=== PATIENT | female | born 1930 | race Caucasian/White ===

== ENCOUNTER 2016-12-21 09:12 | Day surgery (SDC) | payer MEDICARE, BC ==
[2016-12-21] MEDS ORDERED: Lidocaine 1% INJ* 10 MG/ML 30 ML SDV ONE (10:55)
[2016-12-21] MEDS ORDERED: Bupivacaine 0.5% SDV PF* 30 ML VIAL ONE (10:55)
[2016-12-21 11:52] VITALS: BP 171/90
--- NOTE | 2016-12-22 04:18 | OP ---
DATE OF OPERATION: 12/21/16 - [facility] DATE OF : 34 SURGEON: Jonas Piedra DPM TRY ON BASTER: None. ANESTHESIA: Local anesthesia. PRE-OP DIAGNOSES: 1. Painful bone spur at the lateral aspect of the right great toe. 2. Painful bone spur at the medial aspect of the second right toe. POST-OP DIAGNOSIS: 1. Painful bone spur at the lateral aspect of the right great toe. 2. Painful bone spur at the medial aspect of the second right toe. OPERATIVE PROCEDURE: 1. Excision of bone spur from the lateral aspect of the interphalangeal joint of the right great toe. 2. Excision of bone spur from the medial aspect of the DIPJ of the second right toe. HEMOSTASIS: Pneumatic ankle tourniquet. ESTIMATED BLOOD LOSS: Less than 3 cc. PATHOLOGY: Resected bone spurs. 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 She developed bony hypertrophy at the lateral aspect of the interphalangeal joint at the right great toe and distal interphalangeal joint of the second right toe causing painful skin lesions. It became difficult to wear any shoe or walk without pain. She has to constantly cover and protect the area with bandage or cushions or pads. She opts for surgery at this time because she is not able to wear shoes or walk without pain. DESCRIPTION OF PROCEDURE: The patient was brought to the operating room, placed on the operating room table in supine position. The right foot was prepped and draped in usual fashion. Next a nerve block was performed at the base of right great toe and base of second toe with 1:1 mixture of 1% lidocaine plain and 0.5% Marcaine plain. Next, after assuring adequate anesthesia, the right foot was exsanguinated with Esmarch bandage and pneumatic ankle tourniquet was inflated to 250 mmHg about a well-padded right ankle. Attention was directed to the dorsolateral aspect of the right great toe, where a linear incision was made to allow exposure at the lateral aspect of the interphalangeal joint. Incision was deepened through subcutaneous tissues with care being taken to retract neurovascular structures. Dissection was carried down to deep fascia, where linear periosteal incision was made for exposure of the hypertrophic bone primarily at the lateral base of the distal phalanx of the right great toe. Using a sagittal saw, the hypertrophic bone was resected and a small bur was used to further reduce the prominence of this area and create small concavity as well at the distal lateral proximal phalangeal head and base of the distal phalanx. The surgical site was flushed with copious amounts of normal sterile saline. 4-0 Polysorb was used to reapproximate deep fascia as well as reapproximate subcutaneous tissues and skin was reapproximated with 5-0 nylon. It should be noted, prior to closure, the area was palpated to ensure there are adequate debulking and resection of the bone spur from this area. Next attention was directed to the dorsal medial aspect of the second right toe where linear incision was made. The incision was deep into subcutaneous tissues. Care was taken to retract neurovascular structures. Next a linear periosteal and capsular incision was made to allow exposure of the medial aspect of the distal interphalangeal joint. There was noted to be bony hypertrophy and surgical saw was used to resect the bone spurs and power bur was used to further reduce the prominence of this area as well as create small concavity. Surgical site was flushed with copious amounts of normal sterile saline. The area was palpated through the skin to ensure adequate debulking of the area as well. Again surgical site was flushed with copious amounts of normal sterile saline. The deep fascia and capsular tissues were reapproximated with 4-0 Polysorb and subcutaneous tissues were reapproximated with 4-0 Polysorb and skin was reapproximated with 5-0 nylon. The incisions were dressed with Xeroform gauze and a light compressive dressing was applied consisting of 4x4 gauze, Katie, and light Coban wrap. Pneumatic ankle tourniquet was deflated about the right ankle and a prompt hyperemic response was noted in all 5 digits in the patient's right foot. Having appeared to tolerate the procedure and anesthesia well, the patient was transported via cart from the operating room to Recovery in satisfactory condition with cap refill less than 5 seconds to all digits of the right foot. [id number]/[facility] #: [id number] [facility]ERS[facility] HOSPITALLouise
== END 2016-12-21 12:21 | disposition home or self-care (01) ==
LOC: OREAST 09:12
PROVIDERS: ATTEND Podiatrist Foot Surgery
DX: M77.8 Other enthesopathies, not elsewhere classified (principal); Z87.891 Personal history of nicotine dependence
CPT/HCPCS: 88304; 88311; J2001

== ENCOUNTER 2018-02-26 05:07 | Emergency (ER) | payer MEDICARE, OTHER ==
--- NOTE | 2018-02-26 05:38 | ED ---
Headache - HPI Summary HPI Summary: This is scribe Bashir Feldman documenting for attending Paulette Ray MD. Pt c/o intermittent head pain to top of head since yesterday morning. States pain comes and goes quickly. Pt denies pain at this time. 11/22 I, Dr. Ray, personally performed the services described in this documentation as scribed in my presence and it is both accurate and complete. - History Of Current Complaint Chief Complaint: EDHeadache Stated Complaint: HEAD PAIN Hx Obtained From: Patient - Allergies/Home Medications Allergies/Adverse Reactions: Allergies Allergy/AdvReac Type Severity Reaction Status Date / Time cephalexin Allergy Intermediate Rash Verified 02/26/18 05:17 Adhesive Tape Allergy Rash Verified 02/26/18 05:17 ciprofloxacin Allergy Unknown Verified 02/26/18 05:17 Reaction Details doxycycline Allergy Unknown Verified 02/26/18 05:17 Reaction Details erythromycin base Allergy Unknown Verified 02/26/18 05:17 Reaction Details influenza virus vaccine, Allergy Swelling Verified 02/26/18 05:17 specific iodine Allergy Unknown Verified 02/26/18 05:17 Reaction Details MS Sulfa Drugs [Sulfa Drugs] Allergy Hives Verified 02/26/18 05:17 Penicillins Allergy Swelling Verified 02/26/18 05:17 pneumococcal vaccine Allergy Hives Verified 02/26/18 05:17 Sulfa (Sulfonamide Allergy Hives Verified 02/26/18 05:17 Antibiotics) sulfamethoxazole Allergy Hives Verified 02/26/18 05:17 acetaminophen [From Percocet] AdvReac Intermediate See Comment Verified 05:17 azithromycin AdvReac Intermediate Nausea Verified 02/26/18 05:17 oxycodone [From Percocet] AdvReac Intermediate See Comment Verified 02/26/18 05: 17 nitrofurantoin AdvReac See Comment Verified 02/26/18 05:17 [From Macrodantin] Home Medications: Home Medications Fluticasone/Vilanterol [Breo Ellipta 200-25 Mcg INH] INH DAILY 02/26/18 [History ] PMH/Surg Hx/FS Hx/Imm Hx Cardiovascular History: Reports: Hx Angina, Hx Hypertension, 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 Musculoskeletal History: Reports: Hx Arthritis Sensory History: Reports: Hx Contacts or Glasses - GLASSES Denies: Hx Hearing Aid Opthamlomology History: Reports: Hx Contacts or Glasses - GLASSES Psychiatric History: Denies: Hx Panic Disorder - Cancer History Hx Chemotherapy: No Hx Radiation Therapy: No - Surgical History Surgery Procedure, Year, and Place: hyster and ovaries, thr-r,shoulder repair r. ,tkr-r,cataracts Hx Anesthesia Reactions: Yes - VOMIT WITH GENERAL ANESTHESIA - Immunization History Immunizations Up to Date: Yes Infectious Disease History: No Infectious Disease History: Denies: Hx Clostridium Difficile, Hx Hepatitis, Hx Human Immunodeficiency Virus (HIV), Hx of Known/Suspected MRSA, Hx Shingles, Hx Tuberculosis, Hx Known/ Suspected VRE, Hx Known/Suspected VRSA, History Other Infectious Disease, Traveled Outside the in Last 30 Days - Social History Alcohol Use: Weekly Alcohol Amount: 3-4 WINE WEEKLY Substance Use Type: Reports: None Smoking Status (MU): Former Smoker Review of Systems Negative: Fever All Other Systems Reviewed And Are Negative: Yes Physical Exam - Summary Physical Exam Summary: VITAL SIGNS: Reviewed. GENERAL: Patient is a well-developed and nourished female who is lying comfortable in the stretcher. Patient is not in any acute respiratory distress. HEAD AND FACE: No signs of trauma. No ecchymosis, hematomas or skull depressions. No sinus tenderness. EYES: PERRLA, EOMI x 2, No injected conjunctiva, no nystagmus. EARS: Hearing grossly intact. Ear canals and tympanic membranes are within normal limits. MOUTH: Oropharynx within normal limits. NECK: Supple, trachea is midline, no adenopathy, no JVD, no carotid bruit, no c- spine tenderness, neck with full ROM. CHEST: Symmetric, no tenderness at palpation LUNGS: Clear to auscultation bilaterally. No wheezing or crackles. CVS: Regular rate and rhythm, S1 and S2 present, no murmurs or gallops appreciated. ABDOMEN: Soft, non-tender. No signs of distention. No rebound no guarding, and no masses palpated. Bowel sounds are normal. EXTREMITIES: FROM in all major joints, no edema, no cyanosis or clubbing. NEURO: Alert and oriented x 3. No acute neurological deficits. Speech is normal and follows commands. SKIN: Dry and warm Triage Information Reviewed: Yes Vital Signs On Initial Exam: Initial Vitals Temp Pulse Resp BP Pulse Ox 97.7 F 66 16 182/104 98 02/26/18 05:10 02/26/18 05:10 02/26/18 05:10 02/26/18 05:10 02/26/18 05:10 Vital Signs Reviewed: Yes Diagnostics - Vital Signs Vital Signs Temp Pulse Resp BP Pulse Ox 02/26/18 05:10 97.7 F 66 16 182/104 98 - Laboratory Lab Statement: Any lab studies that have been ordered have been reviewed, and results considered in the medical decision making process. Discharge - Discharge Plan Referrals: Lv Live MD [Primary Care Provider] -
--- NOTE | 2018-02-26 06:17 | ED ---
Headache - HPI Summary HPI Summary: Patient is a 87-year-old female who presents emergency department for an intermittent headache that started yesterday. Patient describes headache to the top of her head and describes it as a pulsing sensation. Headache is intermittent without modifying factors urine she does not she took Tylenol prior to arrival and it did improve headache. She otherwise denies visual changes, vomiting, recent falls or injuries, numbness, tingling or weakness. She is not anticoagulated. She is relatively in good health and takes Breo and metoprolol. Patient states she was recently placed on metoprolol and hypertension is a new diagnosis for her. She otherwise denies recent illness associated shortness of breath. Symptoms are moderate in severity. She denies rashes or tick bites. - History Of Current Complaint Chief Complaint: EDHeadache Stated Complaint: HEAD PAIN Time Seen by Provider: 02/26/18 05:47 Hx Obtained From: Patient - Allergies/Home Medications Allergies/Adverse Reactions: Allergies Allergy/AdvReac Type Severity Reaction Status Date / Time cephalexin Allergy Intermediate Rash Verified 02/26/18 05:17 Adhesive Tape Allergy Rash Verified 02/26/18 05:17 ciprofloxacin Allergy Unknown Verified 02/26/18 05:17 Reaction Details doxycycline Allergy Unknown Verified 02/26/18 05:17 Reaction Details erythromycin base Allergy Unknown Verified 02/26/18 05:17 Reaction Details influenza virus vaccine, Allergy Swelling Verified 02/26/18 05:17 specific iodine Allergy Unknown Verified 02/26/18 05:17 Reaction Details MS Sulfa Drugs [Sulfa Drugs] Allergy Hives Verified 02/26/18 05:17 Penicillins Allergy Swelling Verified 02/26/18 05:17 pneumococcal vaccine Allergy Hives Verified 02/26/18 05:17 Sulfa (Sulfonamide Allergy Hives Verified 02/26/18 05:17 Antibiotics) sulfamethoxazole Allergy Hives Verified 02/26/18 05:17 acetaminophen [From Percocet] AdvReac Intermediate See Comment Verified 05:17 azithromycin AdvReac Intermediate Nausea Verified 02/26/18 05:17 oxycodone [From Percocet] AdvReac Intermediate See Comment Verified 02/26/18 05: 17 nitrofurantoin AdvReac See Comment Verified 02/26/18 05:17 [From Macrodantin] Home Medications: Home Medications Fluticasone/Vilanterol [Breo Ellipta 200-25 Mcg INH] 1 inh INH DAILY 02/26/18 [ History Confirmed 02/26/18] PMH/Surg Hx/FS Hx/Imm Hx Previously Healthy: Yes Cardiovascular History: Reports: Hx Angina, Hx Hypertension, 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 Musculoskeletal History: Reports: Hx Arthritis Sensory History: Reports: Hx Contacts or Glasses - GLASSES Opthamlomology History: Reports: Hx Contacts or Glasses - GLASSES Psychiatric History: Denies: Hx Panic Disorder - Cancer History Hx Chemotherapy: No Hx Radiation Therapy: No - Surgical History Surgery Procedure, Year, and Place: hyster and ovaries, thr-r,shoulder repair r. ,tkr-r,cataracts Hx Anesthesia Reactions: Yes - VOMIT WITH GENERAL ANESTHESIA - Immunization History Immunizations Up to Date: Yes Infectious Disease History: No Infectious Disease History: Denies: Hx Clostridium Difficile, Hx Hepatitis, Hx Human Immunodeficiency Virus (HIV), Hx of Known/Suspected MRSA, Hx Shingles, Hx Tuberculosis, Hx Known/ Suspected VRE, Hx Known/Suspected VRSA, History Other Infectious Disease, Traveled Outside the [place] in Last 30 Days - Social History Occupation: Retired Lives: With Family Alcohol Use: Weekly Alcohol Amount: 3-4 WINE WEEKLY Substance Use Type: Reports: None Smoking Status (MU): Former Smoker Review of Systems Constitutional: Negative Negative: Fever, Chills Eyes: Negative Negative: Photophobia, Blurred Vision, Diplopia ENT: Negative Cardiovascular: Negative Respiratory: Negative Positive: Nausea. Negative: Abdominal Pain, Vomiting Genitourinary: Negative Musculoskeletal: Negative Skin: Negative Positive: Headache. Negative: Weakness, Paresthesia, Numbness, Syncope, Slurred Speech All Other Systems Reviewed And Are Negative: Yes Physical Exam Triage Information Reviewed: Yes Vital Signs On Initial Exam: Initial Vitals Temp Pulse Resp BP Pulse Ox 97.7 F 66 16 182/104 98 02/26/18 05:10 02/26/18 05:10 02/26/18 05:10 02/26/18 05:10 02/26/18 05:10 Vital Signs Reviewed: Yes Appearance: Positive: Well-Appearing - Pt. sitting up in bed in NAD. present. Talkative. Head/Face: Positive: Normal Head/Face Inspection Eyes: Positive: Normal, EOMI, CARLEY Neck: Positive: Supple Respiratory/Lung Sounds: Positive: Clear to Auscultation, Breath Sounds Present Cardiovascular: Positive: Normal, RRR Musculoskeletal: Positive: Normal, Strength/ROM Intact Neurological: Positive: Normal, CN Intact II-III Psychiatric: Positive: Affect/Mood Appropriate Diagnostics - Vital Signs Vital Signs Temp Pulse Resp BP Pulse Ox 02/26/18 05:10 97.7 F 66 16 182/104 98 - Laboratory Result Diagrams: 02/26/18 06:25 02/26/18 06:25 Lab Statement: Any lab studies that have been ordered have been reviewed, and results considered in the medical decision making process. Headache Course/Dx - Course Course Of Treatment: Pt. presenting for localized intermittent headache since yesterday. Headache is currently minimal after taking tylenol. Pt. is very well appearing on exam without neuro. deficits. Afebrile. BP is elevated at 182/104. Pt. has not yet taken her morning metoprolol. Will obtain basic labs and head ct. Blood work is unremarkable. CT scan of brain is negative for acute findings per radiology. Case was discussed with Dr. Avila who recommends further outpt. treatment. Results discussed with pt. BP has improved to 143/94 at dc. Advised pt. to call PCP today to schedule a close f.u apt. To return to ER if sxs change or worsen. - Diagnoses Differential Diagnosis/HQI/PQRI: Epidural Hematoma, Subdural Hematoma, Migraine , Sinus Headache, Subarachnoid Hemorrhage, Temporal Arteritis, Tension Headache , Viral Syndrome Provider Diagnoses: Cephalalgia, Hypertension Discharge - Sign-Out/Discharge Documenting (check all that apply): Patient Departure - Discharge Plan Condition: Good Disposition: HOME Patient Education Materials: Acute Headache (ED), Hypertension (ED) Referrals: Lv Live MD [Primary Care Provider] - Additional Instructions: Call your PCP today to schedule a follow up appointment within 2-3 days Continue medications as directed Return to ER if symptoms change or worsen - Billing Disposition and Condition Condition: GOOD Disposition: Home
[2018-02-26 06:39] LABS: ABS Basophils 0.1 10^3/ul (0-0.2); ABS Eosinophils 0.2 10^3/ul (0-0.6); ABS Lymphocytes 1.1 10^3/ul (1.0-4.8); ABS Monocytes 0.6 10^3/ul (0-0.8); ABS Neutrophils 8.2 10^3/ul (1.5-7.7); ABS Nucleated RBC 0 10^3/ul; Eosinophil % 1.7 % (0-6); Hematocrit 44 % (35-47); Hemoglobin 14.9 g/dl (12.0-16.0); Lymphocyte % 11.3 % (25-47); Mean Corpuscular HGB Conc 34 g/dl (31-36); Mean Corpuscular Hemoglobin 31 pg (27-31); Mean Corpuscular Volume 92 fL (80-97); Nucleated Red Blood Cells % 0; Platelet Count 209 10^3/ul (150-450); Red Blood Count 4.81 10^6/ul (4.00-5.40); Red Cell Distribution Width 13 % (10.5-15); White Blood Count 10.1 10^3/ul (3.5-10.8)
[2018-02-26 06:57] LABS: EGFR Non-African American 66.3 (>60)
--- NOTE | 2018-02-26 07:01 | RAD ---
EXAM: CT Head Without Intravenous Contrast CLINICAL HISTORY: 87 years old, female; Pain; Other: Pt C/O intermittent head pain to top of head since yesterday morning. States pain comes and goes quickly. Pt denies pain at this time. ; Additional info: Headache TECHNIQUE: Axial computed tomography images of the head/brain without intravenous contrast. COMPARISON: No relevant prior studies available. FINDINGS: Brain: There is mild diffuse cerebral atrophy present, consistent with this patient's age. No hemorrhage. No significant white matter disease. Ventricles: Unremarkable. No ventriculomegaly. Bones/joints: Unremarkable. No acute fracture. Soft tissues: Unremarkable. Sinuses: Unremarkable as visualized. No acute sinusitis. Mastoid air cells: Unremarkable as visualized. No mastoid effusion. IMPRESSION: No acute findings. R0
[2018-02-26 07:49] VITALS: BP 143/94
== END 2018-02-26 07:48 | disposition home or self-care (01) ==
LOC: ED 05:07
DX: R51 Headache (principal); I10 Essential (primary) hypertension; Z88.6 Allergy status to analgesic agent; Z88.1 Allergy status to other antibiotic agents; Z88.3 Allergy status to other anti-infective agents; Z88.5 Allergy status to narcotic agent; Z88.2 Allergy status to sulfonamides; Z88.7 Allergy status to serum and vaccine; Z91.048 Other nonmedicinal substance allergy status; Z87.891 Personal history of nicotine dependence
CPT/HCPCS: 36415; 70450; 80053; 85025; 85652; 99283